=== PATIENT | male | born 1995 | race Hispanic/Latino ===

== ENCOUNTER 2018-08-22 16:50 | Emergency (ER) | payer SELFPAY ==
--- NOTE | 2018-08-22 17:15 | ER ---
Nurse's Notes [facility] Name: Duke Brannon Jr Age: 22 yrs Sex: Male : 1995 Arrival Date: 08/22/2018 Time: 16:51 Bed 24 Private MD: Diagnosis: Abrasion, left lower leg;Cellulitis of left lower limb Presentation: 08/22 16:54 Presenting complaint: Patient states: I have a itchy rash on my left lower leg that is la1 getting worse and Im afraid it is getting infected. Transition of care: patient was not received from another setting of care. Onset of symptoms was August 22, 2018. Risk Assessment: Do you want to hurt yourself or someone else? Patient reports no desire to harm self or others. Initial Sepsis Screen: Does the patient meet any 2 criteria? No. Patient's initial sepsis screen is negative. Does the patient have a suspected source of infection? No. Patient's initial sepsis screen is negative. Care prior to arrival: None. 16:54 Method Of Arrival: Ambulatory la1 16:54 Acuity: JOHN 3 la1 Historical: - Allergies: 16:55 No Known Allergies; la1 - PMHx: 16:55 None; la1 - Immunization history:: Adult Immunizations up to date. - Social history:: Smoking status: Patient/guardian denies using tobacco. - Ebola Screening: : No symptoms or risks identified at this time. Screenin:13 Abuse screen: Denies threats or abuse. Nutritional screening: No deficits noted. tl3 Tuberculosis screening: No symptoms or risk factors identified. Fall Risk None identified. Assessment: 17:13 General: Appears in no apparent distress. well groomed, well developed, well nourished, tl3 Behavior is calm, cooperative, appropriate for age. Pain: Complains of pain in left leg and medial aspect of left calf. Neuro: Level of Consciousness is awake, alert, obeys commands. Cardiovascular: Patient's skin is warm and dry. Respiratory: Airway is patent is compromised Respiratory effort is even, unlabored, Respiratory pattern is regular, symmetrical. GI: No deficits noted. No signs and/or symptoms were reported involving the gastrointestinal system. : No deficits noted. No signs and/or symptoms were reported regarding the genitourinary system. EENT: No deficits noted. No signs and/or symptoms were reported regarding the EENT system. Derm: Skin is fragile, has lesions on area 1 in X 3 in oval in shape, abraided one small dime sized abscess that appears to be healing noted to lower left calf. Musculoskeletal: No deficits noted. No signs and/or symptoms reported regarding the musculoskeletal system. Vital Signs: 16:55 BP 129 / 87; Pulse 77; Resp 16; Temp 98.7; Pulse Ox 98% on R/A; Weight 92.99 kg; la1 ED Course: 16:51 Patient arrived in ED. tw3 16:55 Triage completed. la1 16:55 Sean Aponte NP is PHCP. pm1 16:55 Lokesh Xiao MD is Attending Physician. pm1 16:55 Arm band placed on right wrist. la1 17:13 Lesli Schuster RN is Primary Nurse. tl3 17:13 Patient has correct armband on for positive identification. tl3 17:13 No provider procedures requiring assistance completed. Patient did not have IV access tl3 during this emergency room visit. 17:13 Dressings: non-adherent dressing x 1 lateral aspect of left calf Bactroban ointment, tl3 non stick gauze and maribel wrap applied. Administered Medications: 17:32 Drug: Bactroban Ointment 2 % 1 application Route: Topical; Site: affected area; tl3 17:33 Follow up: Response: Medication administered at discharge. tl3 Outcome: 17:13 Discharged to home ambulatory. tl3 17:13 Condition: good 17:13 Discharge instructions given to patient, Instructed on discharge instructions, follow up and referral plans. medication usage, wound care, Demonstrated understanding of instructions, follow-up care, medications, wound care, Prescriptions given X 2. 17:14 Discharge ordered by . pm1 17:33 Patient left the ED. tl3 Signatures: Giuseppe Castelan, RN RN la1 Sean Aponte NP FIELD ARTILLERY FIRE CONTROL MAN pm1 Charlee Felix tw3 Lesli Schuster, AASHISH RN tl3
--- NOTE | 2018-08-22 17:15 | EDPHYS ---
Physician Documentation [facility] Name: Duke Brannon Jr Age: 22 yrs Sex: Male : 1995 Arrival Date: 08/22/2018 Time: 16:51 Bed 24 Private MD: ED Physician Lokesh Xiao HPI: 08/22 17:04 This 22 yrs old Male presents to ER via Ambulatory with complaints of Rash. pm1 17:04 The patient's rash thought to be caused by an unknown cause. The rash is located on the pm1 medial aspect of left calf. The rash can be described as itchy abrasions and two pimple areas. Onset: The symptoms/episode began/occurred 2 month(s) ago. Associated signs and symptoms: Pertinent positives: itching, Pertinent negatives: fever. Severity of symptoms: in the emergency department the symptoms are unchanged. Treatment given at home: popping and expressing pimples. Neosporin cream. At onset of rash in June, patient saw ER, blood work performed and was discharged home with Augmentin. Tetanus shot 1 year ago. Patient reports improvement but it continued to be itchy. 1 week ago patient was scratching his leg through his pants resulting in presenting abrasion. 3 days ago he had two small pimples which he popped and expressed and they are healing. . Historical: - Allergies: 16:55 No Known Allergies; la1 - PMHx: 16:55 None; la1 - Immunization history:: Adult Immunizations up to date. - Social history:: Smoking status: Patient/guardian denies using tobacco. - Ebola Screening: : No symptoms or risks identified at this time. ROS: 17:11 Constitutional: Negative for fever, chills, and weight loss, Eyes: Negative for injury, pm1 pain, redness, and discharge, ENT: Negative for injury, pain, and discharge, Neck: Negative for injury, pain, and swelling, Cardiovascular: Negative for chest pain, palpitations, and edema, Respiratory: Negative for shortness of breath, cough, wheezing, and pleuritic chest pain, Abdomen/GI: Negative for abdominal pain, nausea, vomiting, diarrhea, and constipation, Back: Negative for injury and pain, : Negative for injury, bleeding, discharge, and swelling, MS/Extremity: Negative for injury and deformity. 17:11 Neuro: Negative for headache, weakness, numbness, tingling, and seizure. 17:11 Skin: Positive for abrasion(s), cellulitis, of the medial aspect of left calf, Negative for erythema, swelling. Exam: 17:11 Constitutional: This is a well developed, well nourished patient who is awake, alert, pm1 and in no acute distress. Head/Face: Normocephalic, atraumatic. Eyes: Pupils equal round and reactive to light, extra-ocular motions intact. Lids and lashes normal. Conjunctiva and sclera are non-icteric and not injected. Cornea within normal limits. Periorbital areas with no swelling, redness, or edema. ENT: Nares patent. No nasal discharge, no septal abnormalities noted. Tympanic membranes are normal and external auditory canals are clear. Oropharynx with no redness, swelling, or masses, exudates, or evidence of obstruction, uvula midline. Mucous membranes moist. Neck: Trachea midline, no thyromegaly or masses palpated, and no cervical lymphadenopathy. Supple, full range of motion without nuchal rigidity, or vertebral point tenderness. No Meningismus. Chest/axilla: Normal chest wall appearance and motion. Nontender with no deformity. No lesions are appreciated. Cardiovascular: Regular rate and rhythm with a normal S1 and S2. No gallops, murmurs, or rubs. Normal PMI, no JVD. No pulse deficits. Respiratory: Lungs have equal breath sounds bilaterally, clear to auscultation and percussion. No rales, rhonchi or wheezes noted. No increased work of breathing, no retractions or nasal flaring. Abdomen/GI: Soft, non-tender, with normal bowel sounds. No distension or tympany. No guarding or rebound. No evidence of tenderness throughout. Back: No spinal tenderness. No costovertebral tenderness. Full range of motion. 17:11 Skin: Appearance: normal except for affected area, well healing abrasion 1.5 cm x 5 cm with tissue granulation. No drainage, redness, warmth from abrasion. 5 cm proximal to abrasion is a 1 cm circular phlegmon with central scab which patient lanced and expressed 3 days ago. No fluctuance, surrounding cellulitis, drainage, redness or warmth present. On proximal aspect of Achilles tendon is a 0.5 cm circular phlegmon with central scab which patient lanced and expressed 3 days go also. No fluctuance, surrounding cellulitis, drainage, redness, or warmth present. Vital Signs: 16:55 BP 129 / 87; Pulse 77; Resp 16; Temp 98.7; Pulse Ox 98% on R/A; Weight 92.99 kg; la1 MDM: 16:56 Patient medically screened. [facility] 17:11 Data reviewed: vital signs. Data interpreted: Pulse oximetry: on room air is 98 %. pm1 Interpretation: normal. Counseling: I had a detailed discussion with the patient and/or guardian regarding: the historical points, exam findings, and any diagnostic results supporting the discharge/admit diagnosis, the need for outpatient follow up, a family practitioner, to return to the emergency department if symptoms worsen or persist or if there are any questions or concerns that arise at home. 08/22 17:32 Order name: Wound dressing; Complete Time: 17:33 tl3 Administered Medications: 17:32 Drug: Bactroban Ointment 2 % 1 application Route: Topical; Site: affected area; tl3 17:33 Follow up: Response: Medication administered at discharge. tl3 Disposition: 08/22/18 17:14 Discharged to Home. Impression: Abrasion, left lower leg, Cellulitis of left lower limb. - Condition is Stable. - Discharge Instructions: Abrasion, Cellulitis, Adult, Wound Care. - Prescriptions for Bactroban 2 % Topical Ointment - Apply to affected area 1 application by TOPICAL route every 12 hours; 30 gram. Bactrim DS 800- 160 mg Oral Tablet - take 1 tablet by ORAL route every 12 hours for 10 days; 20 tablet. - Medication Reconciliation Form, Thank You Letter, Antibiotic Education form. - Follow up: Emergency Department; When: As needed; Reason: Worsening of condition. Follow up: Private Physician; When: 2 - 3 days; Reason: Recheck today's complaints, Continuance of care, Re-evaluation by your physician. - Problem is new. - Symptoms have improved. Addendum: 08/24/2018 07:16 Co-signature as Attending Physician, Lokesh Xiao MD I agree with the assessment and c san plan of care. Signatures: Lokesh Xiao MD MD cha Attema, Lee, RN RN la1 Sean Aponte, HEARING AND SPEECH ASSISTANT HEARING AND SPEECH ASSISTANT pm1 Landen, Lesli, RN RN tl3 Corrections: (The following items were deleted from the chart) 08/22 17:33 17:14 08/22/2018 17:14 Discharged to Home. Impression: Abrasion, left lower leg; tl3 Cellulitis of left lower limb. Condition is Stable. Forms are Medication Reconciliation Form, Thank You Letter, Antibiotic Education, Prescription Opioid Use. Follow up: Emergency Department; When: As needed; Reason: Worsening of condition. Follow up: Private Physician; When: 2 - 3 days; Reason: Recheck today's complaints, Continuance of care, Re-evaluation by your physician. Problem is new. Symptoms have improved. pm1
[2018-08-22] MEDS ORDERED: MUPIROCIN 2% OINT 22GM TUBE TOP ONE (17:24)
[2018-08-22 17:37] VITALS: BP 129/87; TEMP 98.7; O2SAT 98
== END 2018-08-22 17:33 | disposition home or self-care (01) ==
LOC: ER 16:50
DX: L03.116 Cellulitis of left lower limb (principal); S80.812A Abrasion, left lower leg, initial encounter; X58.XXXA Exposure to other specified factors, initial encounter
CPT/HCPCS: 99283

== ENCOUNTER 2020-12-23 17:15 | Emergency (ER) | payer SELFPAY ==
[2020-12-23 18:46] LABS: SARS-COV-2 RT PCR POSITIVE (NEGATIVE)
--- NOTE | 2020-12-23 18:56 | EDPHYS ---
Physician Documentation [facility] Name: Duke Brannon Jr Age: 25 yrs Sex: Male : 1995 Arrival Date: 12/23/2020 Time: 17:17 Bed 7 Private MD: ED Physician Lokesh Xiao HPI: 12/23 18:54 This 25 yrs old Male presents to ER via Ambulatory with complaints of Fever, kb Body Aches. 18:54 The patient has not experienced similar symptoms in the past. The patient has not kb recently seen a physician. 18:54 The patient or guardian reports flu symptoms, low-grade fever, myalgias. Onset: The kb symptoms/episode began/occurred last night. Severity of symptoms: At their worst the symptoms were mild, in the emergency department the symptoms are unchanged. Modifying factors: The symptoms are alleviated by nothing, the symptoms are aggravated by nothing. Associated signs and symptoms: Pertinent positives: fever, Pertinent negatives: chest pain, diarrhea, ear ache, nausea, rhinorrhea, sore throat, vomiting. Pt reports fever, body aches and a headache that started last night. "I came to see if it was that coronavirus that's going around or food poisoning from crawfish.". Historical: - Allergies: 17:27 No Known Drug Allergies; ll1 - PMHx: 17:27 None; ll1 - PSHx: 17:27 None; ll1 - Immunization history:: Flu vaccine is up to date. - Social history:: Smoking status: Patient denies any tobacco usage or history of. ROS: 18:52 ENT: Negative for injury, pain, and discharge, Cardiovascular: Negative for chest pain, kb palpitations, and edema, Respiratory: Negative for shortness of breath, cough, wheezing, and pleuritic chest pain, Abdomen/GI: Negative for abdominal pain, nausea, vomiting, diarrhea, and constipation, MS/Extremity: Negative for injury and deformity, Skin: Negative for injury, rash, and discoloration. 18:52 Constitutional: Positive for body aches, fatigue, fever, malaise. 18:52 Neuro: Positive for headache. Exam: 18:52 Constitutional: This is a well developed, well nourished patient who is awake, alert, kb and in no acute distress. Head/Face: Normocephalic, atraumatic. Chest/axilla: Normal chest wall appearance and motion. Nontender with no deformity. No lesions are appreciated. Cardiovascular: Regular rate and rhythm with a normal S1 and S2. No gallops, murmurs, or rubs. Normal PMI, no JVD. No pulse deficits. Respiratory: Lungs have equal breath sounds bilaterally, clear to auscultation and percussion. No rales, rhonchi or wheezes noted. No increased work of breathing, no retractions or nasal flaring. Abdomen/GI: Soft, non-tender, with normal bowel sounds. No distension or tympany. No guarding or rebound. No evidence of tenderness throughout. Skin: Warm, dry with normal turgor. Normal color with no rashes, no lesions, and no evidence of cellulitis. MS/ Extremity: Pulses equal, no cyanosis. Neurovascular intact. Full, normal range of motion. Neuro: Awake and alert, GCS 15, oriented to person, place, time, and situation. Cranial nerves II-XII grossly intact. Motor strength 5/5 in all extremities. Sensory grossly intact. Cerebellar exam normal. Normal gait. Vital Signs: 17:27 BP 142 / 97; Pulse 80; Resp 16; Temp 98.5; Pulse Ox 98% ; Weight 95.25 kg; Height 5 ft. ll1 8 in. (172.72 cm); Pain 8/10; 17:27 Body Mass Index 31.93 (95.25 kg, 172.72 cm) ll1 MDM: 18:13 Patient medically screened. rizwan 18:51 Data reviewed: vital signs, nurses notes. Data interpreted: Pulse oximetry: on room air kb is 98 %. Interpretation: normal. Counseling: I had a detailed discussion with the patient and/or guardian regarding: the historical points, exam findings, and any diagnostic results supporting the discharge/admit diagnosis, lab results, the need for outpatient follow up, a family practitioner, to return to the emergency department if symptoms worsen or persist or if there are any questions or concerns that arise at home. 12/23 18:46 Order name: COVID-19/FLU A+B; Complete Time: 18:48 EDMS Administered Medications: No medications were administered Disposition: 12/24 14:41 Co-signature as Attending Physician, Lokesh Xiao MD I agree with the assessment and rizwan plan of care. Disposition: 12/23/20 18:56 Discharged to Home. Impression: Coronavirus infection, unspecified. - Condition is Stable. - Discharge Instructions: Viral Respiratory Infection, Nvgr-Vu-Oney, COVID-19. - Medication Reconciliation Form, Thank You Letter, Antibiotic Education, Prescription Opioid Use form. - Follow up: Emergency Department; When: As needed; Reason: Worsening of condition. Follow up: Private Physician; When: 2 - 3 days; Reason: Recheck today's complaints, Continuance of care, Re-evaluation by your physician. Signatures: Dispatcher [employer] EDIN Dionne Lim, CONSERVATOR ARTIFACTS-C CONSERVATOR ARTIFACTS-Karon Oswald, RN RN Lokesh Sparrow MD MD cha Lewis, Lynsay RN RN ll1 Corrections: (The following items were deleted from the chart) 12/23 17:58 17:37 Influenza Screen (A \\T\\ B)+BA.LAB.BRZ ordered. [facility] 17:58 17:37 CORONAVIRUS+MR.LAB.BRZ ordered. [facility] 19:01 18:56 12/23/2020 18:56 Discharged to Home. Impression: Coronavirus infection, sv unspecified. Condition is Stable. Forms are Medication Reconciliation Form, Thank You Letter, Antibiotic Education, Prescription Opioid Use. Follow up: Emergency Department; When: As needed; Reason: Worsening of condition. Follow up: Private Physician; When: 2 - 3 days; Reason: Recheck today's complaints, Continuance of care, Re-evaluation by your physician. kb
--- NOTE | 2020-12-23 18:56 | ER ---
Nurse's Notes [facility] Name: Duke Brannon Jr Age: 25 yrs Sex: Male : 1995 Arrival Date: 12/23/2020 Time: 17:17 Bed 7 Private MD: Diagnosis: Coronavirus infection, unspecified Presentation: 12/23 17:27 Chief complaint: Patient states: Body aches, low grade fever, slight cough/congestion ll1 since yesterday. Coronavirus screen: Client denies travel out of the [place] in the last 14 days. congestion, cough unrelated to allergies, fever, headache, muscle pain, Client presents with at least one sign or symptom that may indicate coronavirus-19. Standard/surgical mask placed on the client. Ebola Screen: Patient denies travel to an Ebola-affected area in the 21 days before illness onset. Initial Sepsis Screen: Does the patient meet any 2 criteria? No. Patient's initial sepsis screen is negative. Does the patient have a suspected source of infection? Yes: Productive cough/pneumonia. Risk Assessment: Do you want to hurt yourself or someone else? Patient reports no desire to harm self or others. Onset of symptoms was December 22, 2020. 17:27 Method Of Arrival: Ambulatory ll1 17:27 Acuity: JOHN 4 ll1 Triage Assessment: 17:30 General: Appears in no apparent distress. Behavior is calm, cooperative, appropriate ll1 for age. Pain: Denies pain. Neuro: Level of Consciousness is awake, alert, obeys commands, Oriented to person, place, time, situation, Appropriate for age Tile Helper are equal bilaterally Moves all extremities. Full function Gait is steady, Speech is normal, Facial symmetry appears normal, Reports headache. Cardiovascular: No deficits noted. Respiratory: Reports cough that is Breath sounds are clear bilaterally. GI: Abdomen is flat, Bowel sounds present X 4 quads. Abd is soft and non tender X 4 quads. Reports nausea. Musculoskeletal: Circulation, motion, and sensation intact. Capillary refill < 3 seconds, Range of motion: intact in all extremities, Reports body aches. Historical: - Allergies: 17:27 No Known Drug Allergies; ll1 - PMHx: 17:27 None; ll1 - PSHx: 17:27 None; ll1 - Immunization history:: Flu vaccine is up to date. - Social history:: Smoking status: Patient denies any tobacco usage or history of. Screenin:58 Abuse screen: Denies threats or abuse. Nutritional screening: No deficits noted. ll1 Tuberculosis screening: No symptoms or risk factors identified. 18:14 Fall Risk None identified. sv Assessment: 18:13 General: Appears in no apparent distress. comfortable, well groomed, well developed, sv Behavior is calm, cooperative, appropriate for age. General: Reports fever. Pain: Complains of pain in "all over" Pain currently is 8 out of 10 on a pain scale. Quality of pain is described as aching, Is intermittent. Neuro: Level of Consciousness is awake, alert, obeys commands, Oriented to person, place, time, situation, Moves all extremities. Full function. Respiratory: Reports cough that is non-productive, Respiratory effort is even, unlabored. Derm: Skin is normal. 19:00 Reassessment: Patient appears in no apparent distress at this time. No changes from sv previously documented assessment. Patient and/or family updated on plan of care and expected duration. Pain level reassessed. Patient is alert, oriented x 3, equal unlabored respirations, skin warm/dry/pink. Vital Signs: 17:27 BP 142 / 97; Pulse 80; Resp 16; Temp 98.5; Pulse Ox 98% ; Weight 95.25 kg; Height 5 ft. ll1 8 in. (172.72 cm); Pain 8/10; 17:27 Body Mass Index 31.93 (95.25 kg, 172.72 cm) ll1 ED Course: 17:17 Patient arrived in ED. ds1 17:27 Arm band placed on. ll1 17:29 Triage completed. ll1 18:02 Dionne Lim FNP-C [facility]. kb 18:02 Lokesh Xiao MD is Attending Physician. kb 18:02 COVID swab sent to lab. Flu and/or RSV swab sent to lab. jp3 18:13 Karon Singh, AASHISH is Primary Nurse. sv 18:14 Awaiting lab results. sv 18:14 Patient has correct armband on for positive identification. Bed in low position. Call sv light in reach. Door closed. Head of bed elevated. 19:00 No provider procedures requiring assistance completed. Patient did not have IV access sv during this emergency room visit. Administered Medications: No medications were administered Outcome: 18:56 Discharge ordered by . iwona 19:01 Discharged to home ambulatory. sv 19:01 Condition: stable 19:01 Discharge instructions given to patient, Instructed on discharge instructions, follow up and referral plans. Demonstrated understanding of instructions, follow-up care. 19:01 Patient left the ED. sv Signatures: Dionne Lim, DISTRICT FIRE MANAGEMENT OFFICER-C Karon Banda RN RN sv Tish Shaffer ds1 Demond Hoang jp3 Regina Martínez RN RN ll1
[2020-12-23 19:17] VITALS: BP 142/97; TEMP 98.5; O2SAT 98
== END 2020-12-23 19:01 | disposition home or self-care (01) ==
LOC: ER 17:15
DX: U07.1 COVID-19 (principal); R51.9 Headache, unspecified
CPT/HCPCS: 0240U; 99283

== ENCOUNTER 2020-12-28 12:54 | Emergency (ER) | payer SELFPAY ==
[2020-12-28] MEDS ORDERED: ACETAMINOPHEN 500 MG TAB ONE (16:44)
[2020-12-28] MEDS ORDERED: ONDANSETRON 4 MG (ODT) TAB ONE (16:44)
--- NOTE | 2020-12-28 17:10 | RAD REPORT ---
EXAM DESCRIPTION: RAD - Chest Single View - 12/28/2020 4:49 pm CLINICAL HISTORY: COUGH Chest pain. COMPARISON: CHEST SINGLE VIEW dated 12/31/2015; CHEST SINGLE VIEW dated 03/17/2015; CHEST PA AND LAT 2 VIEW dated 02/17/2012 FINDINGS: Portable technique limits examination quality. Mild bilateral interstitial lung opacities are seen likely indicating viral infection. The heart is n ormal in size. No displaced fractures.
--- NOTE | 2020-12-28 17:17 | ER ---
Nurse's Notes [facility] Name: Duke Brannon Jr Age: 25 yrs Sex: Male : 1995 Arrival Date: 12/28/2020 Time: 12:56 Bed 12 Private MD: Diagnosis: Nausea;Coronavirus infection, unspecified;Pneumonia due to other specified infectious organisms;Other chest pain Presentation: 12/28 13:10 Chief complaint: Patient states: Covid positive here Friday. State his chest hurts ll1 now with coughing and the nausea is worse. Came to be re checked. Temp 99.5 at home. No respiratory distress noted during triage. Coronavirus screen: Client denies travel out of the [place] in the last 14 days. congestion, cough unrelated to allergies, difficulty breathing, fatigue, fever, headache, muscle pain, nausea, Client presents with at least one sign or symptom that may indicate coronavirus-19. Standard/surgical mask placed on the client. Ebola Screen: Patient denies travel to an Ebola-affected area in the 21 days before illness onset. Initial Sepsis Screen: Does the patient meet any 2 criteria? HR > 90 bpm. No. Patient's initial sepsis screen is negative. Does the patient have a suspected source of infection? Yes: Productive cough/pneumonia. Risk Assessment: Do you want to hurt yourself or someone else? Patient reports no desire to harm self or others. Onset of symptoms was December 22, 2020. 13:10 Method Of Arrival: Ambulatory ll1 13:10 Acuity: JOHN 4 ll1 Historical: - Allergies: 13:10 No Known Allergies; ll1 - PMHx: 13:10 None; ll1 - PSHx: 13:10 None; ll1 - Immunization history:: Flu vaccine is up to date. - Social history:: Smoking status: Patient denies any tobacco usage or history of. Screenin:17 Abuse screen: Denies threats or abuse. Nutritional screening: No deficits noted. tw2 Tuberculosis screening: No symptoms or risk factors identified. Fall Risk None identified. Assessment: 16:02 General: Appears in no apparent distress. obese, well groomed, Behavior is calm, tw2 cooperative, appropriate for age. Pain: Pain does not radiate. Pain began 2-3 days ago. Neuro: Level of Consciousness is awake, alert, obeys commands, Oriented to person, place, time, situation. Cardiovascular: Reports chest pain, with deep breath. Respiratory: Reports cough that is non-productive, dry. GI: Reports nausea. : No signs and/or symptoms were reported regarding the genitourinary system. EENT: No signs and/or symptoms were reported regarding the EENT system. Derm: No signs and/or symptoms reported regarding the dermatologic system. Musculoskeletal: Range of motion: intact in all extremities. 16:16 Reassessment: provider ISAÍAS Mcconnell at bedside at this time. tw2 17:33 Reassessment: Patient appears in no apparent distress at this time. Patient and/or tw2 family updated on plan of care and expected duration. Pain level reassessed. Patient is alert, oriented x 3, equal unlabored respirations, skin warm/dry/pink. Patient states feeling better. Patient states symptoms have improved. Vital Signs: 13:10 BP 126 / 78; Pulse 97; Resp 17; Temp 98.7; Pulse Ox 100% ; Weight 95.25 kg; Height 5 ll1 ft. 8 in. (172.72 cm); Pain 6/10; 14:36 BP 108 / 76; Pulse 96; Resp 18; Pulse Ox 99% on R/A; ll1 16:10 BP 120 / 68; Pulse 92; Resp 17; Pulse Ox 99% on R/A; tw2 17:33 BP 106 / 79; Pulse 90; Resp 17; Pulse Ox 97% on R/A; tw2 13:10 Body Mass Index 31.93 (95.25 kg, 172.72 cm) ll1 ED Course: 12:56 Patient arrived in ED. as 13:10 Arm band placed on. ll1 13:12 Triage completed. ll1 16:02 Bed in low position. Call light in reach. Pulse ox on. NIBP on. tw2 16:04 Lokesh Orta PA is PHCP. cp 16:04 Lokesh Xiao MD is Attending Physician. cp 16:16 Carolina Davis, AASHISH is Primary Nurse. tw2 16:17 Patient maintains SpO2 saturation greater than 95% on room air. tw2 16:49 XRAY Chest (1 view) In Process Unspecified. EDMS 17:34 No provider procedures requiring assistance completed. Patient did not have IV access tw2 during this emergency room visit. Administered Medications: 16:41 Drug: Zofran (Ondansetron) 4 mg Route: PO; tw2 17:34 Follow up: Response: No adverse reaction; Nausea is decreased tw2 16:42 Drug: Tylenol 1000 mg Route: PO; tw2 17:34 Follow up: Response: No adverse reaction tw2 Outcome: 17:16 Discharge ordered by . ken 17:34 Discharged to home ambulatory. tw2 17:34 Condition: stable 17:34 Discharge instructions given to patient, Instructed on discharge instructions, follow up and referral plans. medication usage, Demonstrated understanding of instructions, follow-up care, medications, Prescriptions given X 4. 17:35 Patient left the ED. tw2 Signatures: Dispatcher [employer] EDMS Deedee Huynh Corey, PA PA cp Wise, Tara RN RN tw2 Regina Martínez RN RN ll1
--- NOTE | 2020-12-28 17:17 | EDPHYS ---
Physician Documentation [facility] Name: Duke Brannon Jr Age: 25 yrs Sex: Male : 1995 Arrival Date: 12/28/2020 Time: 12:56 Bed 12 Private MD: ED Physician Lokesh Xiao HPI: 12/28 16:25 This 25 yrs old Male presents to ER via Ambulatory with complaints of Chest cp Pain - covid+, Nausea. 16:25 The patient or guardian reports chest pain that is located primarily in the anterior cp chest wall, mid chest. 16:25 The pain does not radiate. Associated signs and symptoms: Pertinent positives: cough, cp nausea, Pertinent negatives: abdominal pain, lower extremity pain, lower extremity swelling, shortness of breath, syncope, vomiting. 16:25 The chest pain is described as sharp. cp 16:25 Duration: The patient or guardian reports multiple episodes, that worsen with cough. cp Patient reports being diagnosed with COVID-19 6 days ago. Historical: - Allergies: 13:10 No Known Allergies; ll1 - PMHx: 13:10 None; ll1 - PSHx: 13:10 None; ll1 - Immunization history:: Flu vaccine is up to date. - Social history:: Smoking status: Patient denies any tobacco usage or history of. ROS: 16:30 Constitutional: Negative for fever, poor PO intake. cp 16:30 Eyes: Negative for injury, pain, redness, and discharge. cp 16:30 ENT: Negative for ear pain, sore throat, difficulty swallowing, difficulty handling secretions. 16:30 Cardiovascular: Positive for chest pain, with cough, Negative for edema, palpitations. 16:30 Respiratory: Positive for cough, with no reported sputum, Negative for shortness of breath, wheezing. 16:30 Abdomen/GI: Positive for nausea, Negative for abdominal pain, vomiting, diarrhea, constipation. 16:30 Back: Negative for pain at rest, pain with movement. 16:30 Neuro: Negative for altered mental status, headache, weakness. 16:30 All other systems are negative. Exam: 16:35 Constitutional: The patient appears in no acute distress, alert, awake, cp non-diaphoretic, non-toxic, well developed, well nourished. 16:35 Head/Face: Normocephalic, atraumatic. cp 16:35 Eyes: Periorbital structures: appear normal, Conjunctiva: normal, no exudate, no injection, Sclera: no appreciated abnormality, Lids and lashes: appear normal, bilaterally. 16:35 ENT: External ear(s): are unremarkable, Nose: is normal, Mouth: Lips: moist, Oral mucosa: moist, Posterior pharynx: Airway: no evidence of obstruction, patent. 16:35 Neck: ROM/movement: is normal, is supple, no meningismus, no nuchal rigidity. 16:35 Chest/axilla: Inspection: normal, Palpation: is normal, no crepitus, no tenderness. 16:35 Cardiovascular: Rate: normal, Rhythm: regular. 16:35 Respiratory: the patient does not display signs of respiratory distress, Respirations: normal, no use of accessory muscles, no retractions, labored breathing, is not present, Breath sounds: are clear throughout, no decreased breath sounds, no stridor, no wheezing. 16:35 Abdomen/GI: Inspection: abdomen appears normal, Palpation: abdomen is soft and non-tender, in all quadrants. 16:35 Back: pain, is absent, ROM is normal. 16:35 Neuro: Orientation: to person, place \T\ time. Mentation: is normal, Motor: moves all fours, strength is normal. 16:40 ECG was reviewed by the Attending Physician. cp Vital Signs: 13:10 BP 126 / 78; Pulse 97; Resp 17; Temp 98.7; Pulse Ox 100% ; Weight 95.25 kg; Height 5 ll1 ft. 8 in. (172.72 cm); Pain 6/10; 14:36 BP 108 / 76; Pulse 96; Resp 18; Pulse Ox 99% on R/A; ll1 16:10 BP 120 / 68; Pulse 92; Resp 17; Pulse Ox 99% on R/A; tw2 17:33 BP 106 / 79; Pulse 90; Resp 17; Pulse Ox 97% on R/A; tw2 13:10 Body Mass Index 31.93 (95.25 kg, 172.72 cm) ll1 MDM: 16:11 Patient medically screened. cp 16:45 Differential diagnosis: acute myocardial infarction, chest wall pain, costochondritis, cp pleurisy, pneumonia, pneumothorax. 17:15 Data reviewed: vital signs, nurses notes, EKG, radiologic studies, plain films. cp 17:15 Test interpretation: by ED physician or midlevel provider: ECG, plain radiologic cp studies. Counseling: I had a detailed discussion with the patient and/or guardian regarding: the historical points, exam findings, and any diagnostic results supporting the discharge/admit diagnosis, radiology results, to return to the emergency department if symptoms worsen or persist or if there are any questions or concerns that arise at home. ED course: VSS. Patient appears non-toxic and no signs of respiratory distress. Symptoms improved with meds. Will discharge to home for continued monitoring. 12/28 16:20 Order name: XRAY Chest (1 view) cp 12/28 16:20 Order name: EKG; Complete Time: 16:20 cp 12/28 16:20 Order name: EKG - Nurse/Tech; Complete Time: 16:41 cp EC:40 Rate is 91 beats/min. Rhythm is regular. DE interval is normal. QRS interval is normal. cp QT interval is normal. T waves are Inverted in lead aVR. Interpreted by me. Reviewed by me. Administered Medications: 16:41 Drug: Zofran (Ondansetron) 4 mg Route: PO; tw2 17:34 Follow up: Response: No adverse reaction; Nausea is decreased tw2 16:42 Drug: Tylenol 1000 mg Route: PO; tw2 17:34 Follow up: Response: No adverse reaction tw2 Disposition: 12/29 05:42 Co-signature as Attending Physician, Lokesh Xiao MD I agree with the assessment and rizwan plan of care. Disposition: 12/28/20 17:16 Discharged to Home. Impression: Nausea, Coronavirus infection, unspecified, Pneumonia due to other specified infectious organisms, Other chest pain. - Condition is Stable. - Discharge Instructions: Nonspecific Chest Pain, Nausea, Adult, Community-Acquired Pneumonia, Adult, COVID-19. - Prescriptions for ivermectin 3 mg Oral tablet - take 6 tablet by ORAL route every other day x2 dose; 12 tablet. Tessalon Perles 100 mg Oral Capsule - take 2 capsule by ORAL route every 8 hours As needed; 30 capsule. Zithromax Z- Rober 250 mg Oral Tablet - take 1 tablet by ORAL route as directed for 5 days Day 1 - take two (2) tablets one time. Day 2, 3, 4 , 5 take one (1) tablet once daily.; 6 tablet. Prednisone 20 mg Oral Tablet - take 2 tablet by ORAL route once daily for 5 days; 10 tablet. - Medication Reconciliation Form, Thank You Letter, Antibiotic Education, Prescription Opioid Use, Work release form form. - Follow up: Private Physician; When: 2 - 3 days; Reason: Worsening of condition. - Problem is new. - Symptoms have improved. Signatures: Dispatcher [employer] EDPA Lokesh Xiao MD MD cha Page, Corey, PA PA cp Carolina Davis RN RN tw2 Regina Martínez RN RN ll1 Corrections: (The following items were deleted from the chart) 12/28 17:35 17:16 12/28/2020 17:16 Discharged to Home. Impression: Nausea; Coronavirus infection, tw2 unspecified; Pneumonia due to other specified infectious organisms; Other chest pain. Condition is Stable. Forms are Work release form, Medication Reconciliation Form, Thank You Letter, Antibiotic Education, Prescription Opioid Use. Follow up: Private Physician; When: 2 - 3 days; Reason: Worsening of condition. Problem is new. Symptoms have improved. cp
[2020-12-28 17:55] VITALS: TEMP 98.7
[2020-12-28 17:58] VITALS: BP 106/79; O2SAT 97
== END 2020-12-28 17:35 | disposition home or self-care (01) ==
LOC: ER 12:54
DX: U07.1 COVID-19 (principal); J12.82 Pneumonia due to coronavirus disease 2019
CPT/HCPCS: 71045; 99284

== ENCOUNTER 2023-08-19 08:39 | Emergency (ER) | payer SELFPAY ==
[2023-08-19] MEDS ORDERED: ONDANSETRON 4 MG (ODT) TAB ONE (09:16)
[2023-08-19] MEDS ORDERED: IBUPROFEN 400 MG TAB ONE (09:16)
--- NOTE | 2023-08-19 10:29 | EDPHYS ---
Physician Documentation [facility] Name: Duke Brannon Jr Age: 27 yrs Sex: Male : 1995 Arrival Date: 08/19/2023 Time: 08:39 Bed 19 Private MD: ED Physician Migel Mcclure HPI: 08/19 08:45 This 27 yrs old Male presents to ER via Unassigned with complaints of Fever, jh7 Pain All Over, Headache. 08:45 The patient reports fever, not measured (subjective). Onset: The symptoms/episode jh7 began/occurred 3 day(s) ago. Associated signs and symptoms: Pertinent positives: arthralgias, headache, nausea, Pertinent negatives: abdominal pain, chest pain, shortness of breath, vomiting. Historical: - Allergies: 08:59 No Known Allergies; jl7 - Home Meds: 08:59 None [Active]; jl7 - PMHx: 08:59 None; jl7 - Immunization history:: Adult Immunizations unknown. - Social history:: Smoking status: Patient denies any tobacco usage or history of. ROS: 08:45 Eyes: Negative for injury, pain, redness, and discharge, ENT: Negative for injury, jh7 pain, and discharge, Neck: Negative for injury, pain, and swelling, Cardiovascular: Negative for chest pain, palpitations, and edema, Respiratory: Negative for shortness of breath, cough, wheezing, and pleuritic chest pain, Back: Negative for injury and pain, MS/Extremity: Negative for injury and deformity, Skin: Negative for injury, rash, and discoloration, 08:45 Constitutional: Positive for body aches, fever, malaise, 08:45 Abdomen/GI: Positive for nausea, Negative for abdominal pain, vomiting, diarrhea, constipation, 08:45 Neuro: Positive for headache, Negative for altered mental status, dizziness, gait disturbance, syncope, visual changes, weakness, 08:45 All other systems are negative, Exam: 08:45 Head/Face: Normocephalic, atraumatic. ENT: Nares patent. No nasal discharge, no jh7 septal abnormalities noted. Tympanic membranes are normal and external auditory canals are clear. Oropharynx with no redness, swelling, or masses, exudates, or evidence of obstruction, uvula midline. Mucous membranes moist. Neck: Trachea midline, no thyromegaly or masses palpated, and no cervical lymphadenopathy. Supple, full range of motion without nuchal rigidity, or vertebral point tenderness. No Meningismus. Cardiovascular: Regular rate and rhythm with a normal S1 and S2. No gallops, murmurs, or rubs. Normal PMI, no JVD. No pulse deficits. Respiratory: Lungs have equal breath sounds bilaterally, clear to auscultation and percussion. No rales, rhonchi or wheezes noted. No increased work of breathing, no retractions or nasal flaring. Abdomen/GI: Soft, non-tender, with normal bowel sounds. No distension or tympany. No guarding or rebound. No evidence of tenderness throughout. Skin: Warm, dry with normal turgor. Normal color with no rashes, no lesions, and no evidence of cellulitis. MS/ Extremity: Pulses equal, no cyanosis. Neurovascular intact. Full, normal range of motion. Neuro: Awake and alert, GCS 15, oriented to person, place, time, and situation. Motor strength 5/5 in all extremities. Sensory grossly intact. Normal gait. 08:45 Constitutional: The patient appears alert, awake, obviously ill, Vital Signs: 08:58 BP 120 / 77; Pulse 95; Resp 17; Temp 101.5; Pulse Ox 98% ; Weight 113.4 kg; Height 5 jl7 ft. 8 in. ; Pain 6/10; 09:45 BP 118 / 74; Pulse 88; Resp 16; Pulse Ox 99% ; ko1 10:20 Temp 98.4; ko1 10:36 BP 122 / 80; Pulse 85; Resp 16; Pulse Ox 99% ; ko1 08:58 Body Mass Index 38.01 (113.40 kg, 172.72 cm) [facility] 08:58 Pain Scale: Adult [facility] MDM: 08:45 Patient medically screened. [facility] 10:10 Differential diagnosis: viral Infection, URI, Influenza, COVID. Data reviewed: vital [facility] signs, nurses notes. I considered the following discharge prescriptions or medication management in the emergency department Medications were administered in the Emergency Department. See MAR. Counseling: I had a detailed discussion with the patient and/or guardian regarding the historical points, exam findings, and any diagnostic results supporting the discharge/admit diagnosis, to return to the emergency department if symptoms worsen or persist or if there are any questions or concerns that arise at home. Response to treatment: the patient's symptoms have mildly improved after treatment. 08/19 08:49 Order name: Flu; Complete Time: 09:42 [facility] 08/19 09:31 Order name: SARS-COV-2 RT PCR; Complete Time: 10: EDMS Administered Medications: 09:05 Drug: Ondansetron Oral Disintegrating Tablet Oral Disintegrating Tablet 4 mg PO once jl7 Route: PO; 10:38 Follow up: Response: No adverse reaction; Nausea is decreased ko1 09:05 Drug: Ibuprofen PO 800 mg PO once Route: PO; jl7 10:38 Follow up: Response: No adverse reaction; Temperature is decreased ko1 Disposition: 12:11 Co-signature as Attending Physician, Migel Mcclure MD I reviewed the patient's care rn provided by the Advanced Practice Provider and agree with the diagnosis and treatment plan. Disposition Summary: 08/19/23 10:28 Discharge Ordered Notes: Location: Home [facility] Problem: new [facility] Symptoms: have improved [facility] Condition: Stable [facility] Diagnosis - Flu-like Illness [facility] Followup: [facility] - With: Private Physician - When: 2 - 3 days - Reason: Recheck today's complaints Discharge Instructions: - Discharge Summary Sheet [facility] - Viral Illness, Adult [facility] Forms: - Medication Reconciliation Form [facility] - Thank You Letter [facility] - Patient Portal Instructions [facility] - Leadership Thank You Letter [facility] Prescriptions: - ondansetron 4 mg Oral Tablet,disintegrating - take 1 tablet ORAL route every 4-6 hours As needed; 20 tablet; Refills: 0, [facility] Product Selection Permitted Signatures: Dispatcher [employer] EDMigel Arboleda MD MD rn Leal, Jahala, RN RN jl7 Freida Flores FNP FNP [facility] Nuria Pillai RN ko1 Corrections: (The following items were deleted from the chart) 09: 08:50 SARS-COV-2 Antigen [id number] ordered. [facility]
--- NOTE | 2023-08-19 10:29 | ER ---
Nurse's Notes [facility] Name: Duke Brannon Jr Age: 27 yrs Sex: Male : 1995 Arrival Date: 08/19/2023 Time: 08:39 Bed 19 Private MD: Diagnosis: Flu-like Illness Presentation: 08/19 08:58 Chief complaint: Patient states: Fever, body aches, headache, N/V since Friday. [facility] Coronavirus screen: Client presents with at least one sign or symptom that may indicate coronavirus-19. Standard/surgical mask placed on the client. Ebola Screen: No symptoms or risks identified at this time. Initial Sepsis Screen: Does the patient meet any 2 criteria? No. Patient's initial sepsis screen is negative. Does the patient have a suspected source of infection? No. Patient's initial sepsis screen is negative. Risk Assessment: Do you want to hurt yourself or someone else? Patient reports no desire to harm self or others. Onset of symptoms was August 19, 2023. 08:58 Method Of Arrival: Ambulatory [facility] 08:58 Acuity: JOHN 4 [facility] Triage Assessment: 08:59 Headache History: The patient has had previous headaches and this one is similar to [facility] previous episodes. General: Appears in no apparent distress. uncomfortable, ill, Behavior is calm, cooperative, appropriate for age. Pain: Complains of pain in SIU, body aches Pain currently is 6 out of 10 on a pain scale. Pain began 2-3 days ago. Also complains of no other associated symptoms. Neuro: Level of Consciousness is awake, alert, obeys commands, Oriented to person, place, time, situation. Historical: - Allergies: 08:59 No Known Allergies; jl7 - Home Meds: 08:59 None [Active]; jl7 - PMHx: 08:59 None; jl7 - Immunization history:: Adult Immunizations unknown. - Social history:: Smoking status: Patient denies any tobacco usage or history of. Screenin:[address] [facility] ED Fall Risk Assessment (Adult) History of falling in the last 3 months, ko1 including since admission No falls in past 3 months (0 pts) Confusion or Disorientation No (0 pts) Intoxicated or Sedated No (0 pts) Impaired Gait No (0 pts) Mobility Assist Device Used No (0 pt) Altered Elimination No (0 pt) Score/Fall Risk Level 0 - 2 = Low Risk Oriented to surroundings, Maintained a safe environment, Educated pt \T\ family on fall prevention, incl call for assistance when getting out of bed, Assessed \T\ reinforced patient's understanding of fall precautions, Provided non-skid footwear, Hourly rounding (assess needs \T\ fall precautionary measures) done, Used ambulatory aids as needed (educated on \T\ assisted with), Used gait belt as appropriate. Abuse screen: Denies threats or abuse. Denies injuries from another. Nutritional screening: No deficits noted. Tuberculosis screening: No symptoms or risk factors identified. Assessment: 09:45 General: Appears in no apparent distress. ill, Behavior is calm, cooperative, ko1 appropriate for age. Pain: Complains of pain in generalized ache. Neuro: No deficits noted. Cardiovascular: No deficits noted. Respiratory: No deficits noted. GI: No deficits noted. : No deficits noted. EENT: No deficits noted. Derm: No deficits noted. Musculoskeletal: No deficits noted. Vital Signs: 08:58 BP 120 / 77; Pulse 95; Resp 17; Temp 101.5; Pulse Ox 98% ; Weight 113.4 kg; Height 5 jl7 ft. 8 in. ; Pain 6/10; 09:45 BP 118 / 74; Pulse 88; Resp 16; Pulse Ox 99% ; ko1 10:20 Temp 98.4; ko1 10:36 BP 122 / 80; Pulse 85; Resp 16; Pulse Ox 99% ; ko1 08:58 Body Mass Index 38.01 (113.40 kg, 172.72 cm) jl7 08:58 Pain Scale: Adult [facility] ED Course: 08:42 Patient arrived in ED. mg5 08:45 Freida Flores FNP [facility] jh7 08:45 Migel Mcclure MD is Attending Physician. jh7 08:59 Triage completed. jl7 08:59 Arm band placed on right wrist. jl7 09:00 COVID swab sent to lab. Flu and/or RSV swab sent to lab. jl7 09:45 Patient has correct armband on for positive identification. Bed in low position. Call ko1 light in reach. Side rails up X 1. Provided Education on: na. Pulse ox on. NIBP on. Door closed. Noise minimized. Lights dimmed. Warm blanket given. 09:45 No provider procedures requiring assistance completed. ko1 10:20 Nuria Pillai, RN is Primary Nurse. ko1 10:36 IV discontinued, intact, bleeding controlled, No redness/swelling at site. Pressure ko1 dressing applied. Administered Medications: 09:05 Drug: Ondansetron Oral Disintegrating Tablet Oral Disintegrating Tablet 4 mg PO once jl7 Route: PO; 10:38 Follow up: Response: No adverse reaction; Nausea is decreased ko1 09:05 Drug: Ibuprofen PO 800 mg PO once Route: PO; jl7 10:38 Follow up: Response: No adverse reaction; Temperature is decreased ko1 Medication: 09:45 VIS not applicable for this client. ko1 Outcome: 10:28 Discharge ordered by . jh7 10:36 Discharged to home ambulatory, ko1 10:36 Condition: improved 10:36 Discharge instructions given to patient, Instructed on discharge instructions, follow up and referral plans. medication usage, Demonstrated understanding of instructions, follow-up care, medications, Prescriptions given X 1, 10:38 Patient left the ED. ko1 Signatures: Deborah Orellana RN RN 7 Freida Flores, [employer] [place] [id number] Nuria Pillai, RN RN ko1 Fanny Urena mg5
[2023-08-19 10:54] VITALS: O2SAT 99
[2023-08-19 10:55] VITALS: TEMP 98.4
[2023-08-19 10:56] VITALS: BP 122/80
== END 2023-08-19 10:38 | disposition home or self-care (01) ==
LOC: ER 08:39
DX: J10.1 Influenza due to other identified influenza virus with other respiratory manifestations (principal); Z20.822 Contact with and (suspected) exposure to COVID-19
CPT/HCPCS: 36415; 87635; 87804; 99284; Q0162